=== PATIENT | female | born 1995 | race Hispanic/Latino ===

== ENCOUNTER 2018-02-07 08:48 | Emergency (ER) | payer OTHER ==
[2018-02-07] MEDS ORDERED: Sodium Chloride 0.9% 1,000 ML IV STA ×2 (09:16→10:35)
[2018-02-07 09:52] LABS: BASO # 0.1 K/uL (0.0-0.2); BASO % 0.9 % (0.0-2.0); EOS # 0.1 K/uL (0.0-0.7); EOS % 0.8 % (0.0-4.0); LYMPH # 2.3 K/uL (1.0-4.3); MEAN CELL VOLUME 89.4 fl (81.0-99.0); MEAN CORPUSCULAR HEMOGLOBIN 29.6 pg (27.0-31.0); MEAN CORPUSCULAR HGB CONC 33.1 g/dL (33.0-37.0); MEAN PLATELET VOLUME 10.9 fl (7.2-11.7); MONO # 0.5 K/uL (0.0-0.8); MONO % 5.6 % (0.0-10.0); NEUT # 6.6 K/uL (1.8-7.0); NEUT % 68.7 % (50.0-75.0); RBC 3.71 Mil/uL (3.80-5.20); RED CELL DISTRIBUTION WIDTH 13.4 % (11.5-14.5); WHITE BLOOD COUNT 9.6 K/uL (4.8-10.8)
[2018-02-07 10:03] LABS: ALB/GLOB RATIO 1.2 (1.0-2.1); ALBUMIN 3.6 g/dL (3.5-5.0); CALCIUM 8.5 mg/dL (8.4-10.2); GFR AFRICAN-AMERICAN > 60; GFR NON-AFRICAN AMERICAN > 60
[2018-02-07 10:05] LABS: ALT/SGPT 25 U/L (9-52); AST/SGOT 24 U/L (14-36); BLOOD UREA NITROGEN 9 mg/dl (7-17)
[2018-02-07 10:29] VITALS: RESP 16
--- NOTE | 2018-02-07 10:46 | ED PDOC ---
HPI: Abdomen Time Seen by Provider: 02/07/18 09:11 Chief Complaint (Nursing): Abdominal Pain Chief Complaint (Provider): abdominal pain History Per: Patient History/Exam Limitations: no limitations Onset/Duration Of Symptoms: Sudden Onset Outside of [place] travel?: No Current Symptoms Are (Timing): Still Present Severity: Severe Location Of Pain/Discomfort: Diffuse, Other (pelvic) Quality Of Discomfort: Sharp, Cramping Associated Symptoms: Nausea, Vomiting, Loss Of Appetite. denies: Diarrhea, Back Pain, Urinary Symptoms Exacerbating Factors: None Alleviating Factors: None Additional Complaint(s): 22yo female presents c/o sudden onset severe abdominal pain emanating from pelvis, consistent with prior menstrual cramping but much worse, radiating to back, associated w nausea and several episodes vomiting, dizziness. Denies fever , urinary symptoms, vaginal discharge or diarrhea. Past Medical History Reviewed: Historical Data, Nursing Documentation, Vital Signs Vital Signs: Last Vital Signs Temp 97 F L 02/07/18 08:50 Pulse 68 02/07/18 09:55 Resp 16 02/07/18 09:55 BP 86/59 L 02/07/18 09:55 Pulse Ox 99 02/07/18 10:47 - Medical History PMH: Depression - Surgical History Surgical History: No Surg Hx - Family History Family History: States: Unknown Family Hx - Social History Current smoker - smoking cessation education provided: No - Home Medications Home Medications: Ambulatory Orders Medication Instructions Recorded Naproxen [Naprosyn] 500 mg PO BID PRN #14 tablet 02/07/18 - Allergies Allergies/Adverse Reactions: Allergies Allergy/AdvReac Type Severity Reaction Status Date / Time No Known Allergies Allergy Verified 02/07/18 09:01 Review of Systems ROS Statement: Except As Marked, All Systems Reviewed And Found Negative Constitutional: Negative for: Fever Cardiovascular: Negative for: Chest Pain Gastrointestinal: Positive for: Nausea, Vomiting, Abdominal Pain Genitourinary Female: Positive for: Vaginal Bleeding, Pelvic Pain. Negative for : Dysuria, Hematuria Musculoskeletal: Negative for: Neck Pain Skin: Negative for: Rash Neurological: Positive for: Dizziness. Negative for: Weakness, Numbness Psych: Negative for: Suicidal ideation Physical Exam - Reviewed Nursing Documentation Reviewed: Yes Vital Signs Reviewed: Yes - Physical Exam Appears: Positive for: Non-toxic, Uncomfortable Head Exam: Positive for: ATRAUMATIC, NORMAL INSPECTION, NORMOCEPHALIC Skin: Positive for: Warm, Pallor Eye Exam: Positive for: EOMI, Normal appearance, PERRL ENT: Positive for: Normal ENT Inspection Neck: Positive for: Normal, Painless ROM Cardiovascular/Chest: Positive for: Regular Rate, Rhythm Respiratory: Positive for: CNT, Normal Breath Sounds Gastrointestinal/Abdominal: Positive for: Soft, Tenderness (lower abd), Guarding Back: Positive for: Normal Inspection Extremity: Positive for: Normal ROM Neurologic/Psych: Positive for: Alert, Oriented. Negative for: Motor/Sensory Deficits - Laboratory Results Result Diagrams: 02/07/18 09:20 02/07/18 09:20 Urine POC: Negative - ECG O2 Sat by Pulse Oximetry: 99 Pulse Ox Interpretation: Normal Medical Decision Making Medical Decision Making: workup for acute abdomen initiated, differential includes ectopic , ruptured hemorrhagic cyst, obstruction, renal colic labs reviewed mild anemia CO2 15 c/w dehydration or possible hemorrhage ------- reeval approx 11am, improved, states pain mostly resolved, smiling and reading "[employer]" [employer] Accession No. : [id number] Patient Name / ID : [facility] / [id number] Exam Date : 02/07/2018 10:56:12 ( Approved ) Study Comment : Sex / Age : F / 22Y Creator : Darius Leyva MD Dictator : Darius Leyva MD Physician Coder : Shellfish Weigher : Darius Leyva MD Approver2 : Report Date : 02/07/2018 13:00:10 My Comment : HISTORY: Pelvic pain. Menstrual status: LMP 01/02/2018. COMPARISON: None available. TECHNIQUE: Transabdominal only. Real-time technique with 2D, duplex and color Doppler FINDINGS: UTERUS: Measures 3.4 x 4.9 x 7.1 cm. Normal in size and appearance. No fibroid or other mass lesion seen. ENDOMETRIUM: Measures 10.0 mm in diameter. No ultrasound findings to suggest gestational sac , fluid, debris, mass or polyp or other pathologic process within the endometrium. CERVIX: No cervical abnormality identified. RIGHT OVARY: Measures 1.6 x 3.4 x 3.1 cm. No solid mass. Normal flow. LEFT OVARY: Measures 1.5 x 2.3 x 2.7 cm. No solid mass. Normal flow. FREE FLUID: No significant free fluid noted. OTHER FINDINGS: None. IMPRESSION: Unremarkable pelvic ultrasound. Results explained. Recommended repeat CBC to assure Hgb stable but patient refused, states feels much better and she believes early severe pain was due to menstrual cramping. Now no narcotics x4 + hours. Pelvic exam was recommended to r/o infectious causes including PID but she refused and states wants to see her [employer] in [facility] for exam. Risks of delayed treatment discussed including infertility, chronic pain or system spread of infection if present. Offered female examiner or [employer] eval but she wants to be discharged to see her [employer]. Copies of US and bloodwork provided to expedite her care continuity. Attempted to get [employer] name in [place] to give warm handoff but she was unable to provide name or number. Needs followup w OB and possible OCP if indicated given degree cramping/ dysmenorrhea. Disposition - Clinical Impression Clinical Impression: Pelvic pain, Dysmenorrhea - Patient ED Disposition Is Patient to be Admitted: No - Disposition Referrals: Fahad Mccormick DO [Staff Provider] - Disposition: Routine/Home Disposition Time: 13:44 Condition: STABLE Additional Instructions: Pelvic exam was refused today, risks of undiagnosed pelvic infection were explained. Recommend repeat CBC in 10 days and anemia workup. Return to ER for any worse pain, fever, bleeding or any concern. Prescriptions: Naproxen [Naprosyn] 500 mg PO BID PRN #14 tablet PRN Reason: Pain, Moderate (4-7) Instructions: Menstrual Cramps (DC), Painful Periods, Acute Pelvic Pain (DC) Forms: [employer] ([place])
--- NOTE | 2018-02-07 13:02 | US ---
HISTORY: Pelvic pain. Menstrual status: LMP 01/02/2018. COMPARISON: None available. TECHNIQUE: Transabdominal only. Real-time technique with 2D, duplex and color Doppler FINDINGS: UTERUS: Measures 3.4 x 4.9 x 7.1 cm. Normal in size and appearance. No fibroid or other mass lesion seen. ENDOMETRIUM: Measures 10.0 mm in diameter. No ultrasound findings to suggest gestational sac, fluid, debris, mass or polyp or other pathologic process within the endometrium. CERVIX: No cervical abnormality identified. RIGHT OVARY: Measures 1.6 x 3.4 x 3.1 cm. No solid mass. Normal flow. LEFT OVARY: Measures 1.5 x 2.3 x 2.7 cm. No solid mass. Normal flow. FREE FLUID: No significant free fluid noted. OTHER FINDINGS: None. IMPRESSION: Unremarkable pelvic ultrasound.
[2018-02-07 14:26] VITALS: BP 104/67; PULSE 73; TEMP 98.1
[2018-02-07 15:36] VITALS: O2SAT 99
== END 2018-02-07 14:26 | disposition home or self-care (01) ==
LOC: H.ER 08:48
DX: N94.6 Dysmenorrhea, unspecified (principal); R10.2 Pelvic and perineal pain; Z86.59 Personal history of other mental and behavioral disorders
CPT/HCPCS: 76856; 80053; 84702; 85025; 96374; 99283; J1885; J2270; J7040

== ENCOUNTER 2018-04-20 19:44 | Emergency (ER) | payer OTHER ==
--- NOTE | 2018-04-20 20:28 | ED PDOC ---
HPI: Psych/Substance Abuse Time Seen by Provider: 04/20/18 20:24 Chief Complaint (Nursing): Anxiety Chief Complaint (Provider): anxiety History Per: Patient Additional Complaint(s): 22-year-old female with history of anxiety presents with frequent panic attacks over the past few days. Patient states typically she is able to talk to friends and family who help her through the panic attacks but lately this hasn't been working. The other night she took Benadryl which helped only slightly. Patient presents today with panic sensation ongoing for the past 3 hours. Upon arrival she feels very anxious but denies any chest pain, palpitations or difficulty breathing. Patient takes Zoloft daily and states this is not helping her symptoms. She denies suicidal or homicidal ideation. PMD: none Past Medical History Reviewed: Historical Data, Nursing Documentation, Vital Signs Vital Signs: Last Vital Signs Temp 98.8 F 04/20/18 20:00 Pulse 85 04/20/18 20:00 Resp 20 04/20/18 20:00 BP 104/70 04/20/18 20:00 Pulse Ox 99 04/20/18 20:00 - Medical History PMH: Anxiety, Depression - Surgical History Surgical History: No Surg Hx - Family History Family History: States: No Known Family Hx - Living Arrangements Living Arrangements: With Family - Social History Current smoker - smoking cessation education provided: No Alcohol: None Drugs: Denies - Home Medications Home Medications: Ambulatory Orders Medication Instructions Recorded Naproxen [Naprosyn] 500 mg PO BID PRN #14 tablet 02/07/18 - Allergies Allergies/Adverse Reactions: Allergies Allergy/AdvReac Type Severity Reaction Status Date / Time No Known Allergies Allergy Verified 02/07/18 09:01 Review of Systems Cardiovascular: Negative for: Chest Pain, Palpitations Psych: Positive for: Anxiety. Negative for: Suicidal ideation Physical Exam - Reviewed Nursing Documentation Reviewed: Yes Vital Signs Reviewed: Yes - Physical Exam Appears: Positive for: Well, Non-toxic, No Acute Distress Skin: Positive for: Normal Color. Negative for: Rash Eye Exam: Positive for: Normal appearance Cardiovascular/Chest: Positive for: Regular Rate, Rhythm Respiratory: Positive for: Normal Breath Sounds. Negative for: Wheezing, Respiratory Distress Extremity: Positive for: Normal ROM Neurologic/Psych: Positive for: Alert, Oriented - Laboratory Results Urine POC: Negative - ECG O2 Sat by Pulse Oximetry: 99 Pulse Ox Interpretation: Normal Medical Decision Making Medical Decision Makin-year-old female with anxiety. Plan: test PO xanax 0.25 mg Crisis eval As per crisis counselor and psychiatrist quality control specialist Dr. Chacon, patient does not meet criteria for admission and is stable for discharge. Patient was provided with outpatient resources for follow-up. She reports improvement to anxiety symptoms status post Xanax dose given. Disposition - Clinical Impression Clinical Impression: Anxiety - Patient ED Disposition Is Patient to be Admitted: No Counseled Patient/Family Regarding: Need For Followup - Disposition Referrals: [facility] [Outside] Disposition: Routine/Home Disposition Time: 22:29 Condition: STABLE Additional Instructions: Follow up as directed by crisis counselor. Instructions: Anxiety, Adult (DC) Forms: [email or web address] (Thai)
[2018-04-20 22:54] VITALS: BP 127/78; PULSE 78; RESP 19; TEMP 97.6; O2SAT 98
== END 2018-04-20 22:54 | disposition home or self-care (01) ==
LOC: H.ER 19:44
DX: F41.9 Anxiety disorder, unspecified (principal)